=== PATIENT | female | born 1995 | race Caucasian/White ===

== ENCOUNTER 2019-01-27 00:44 | Emergency (ER) | payer OTHER ==
[2019-01-27] MEDS ORDERED: methylPREDNISolone NA SUCC 125 MG/2 ML VIAL ONE (00:50)
[2019-01-27] MEDS ORDERED: methylPREDNISolone NA SUCC 125 MG/2 ML VIAL IVPUSH ONE (00:56)
[2019-01-27 00:59] VITALS: BMI 32.3
--- NOTE | 2019-01-27 01:03 | PDOC ---
History of Present Illness - General Chief Complaint: Allergic Reaction Stated Complaint: ALLERGIC REACTION Time Seen by Provider: 01/27/19 00:55 - History of Present Illness Initial Comments: 01/27/19 00:56 This otherwise healthy 23-year-old woman presents with few hour history of urticaria. Patient ate dinner containing shrimp at approximately 11 PM tonight. Within approximately an hour, she began to develop pruritic rash of her face/neck/back/abdomen and extremities. She has mild throat itching but no sensation of difficulty swallowing/breathing. Patient states that she is previously eaten shellfish in the past without allergic reaction. No other new food or medication exposure. Patient denies new vitamin/supplement or exposure to any new topical agent. Other than recent (last few days) upper respiratory symptoms of nasal congestion /runny nose, the patient is otherwise in her usual good health. On no daily medications No known allergies Non-smoker; no daily alcohol/other recreational drug use Past History - Past Medical History Allergies/Adverse Reactions: Allergies Allergy/AdvReac Type Severity Reaction Status Date / Time shellfish derived Allergy Verified 01/27/19 00:46 Home Medications: Ambulatory Orders Methylprednisolone [Medrol Dose Isiah] 4 mg PO ASDIR #21 tablet 01/27/19 Review of Systems - Review of Systems Able to Perform ROS?: Yes Comments:: 12 point review of systems is negative except for what is noted in the history of present illness *Physical Exam - Physical Exam Comments: GENERAL: Adult female, alert and oriented x3, no acute distress HEAD: Normal with no signs of trauma. EYES: PERRLA, EOMI, sclera anicteric, conjunctiva clear. ENT: Ears normal, nares patent, oropharynx clear without exudates. Moist mucous membranes. No lip/tongue/uvular edema NECK: Normal range of motion, supple without lymphadenopathy, JVD, or masses. No stridor. LUNGS: Breath sounds equal, clear to auscultation bilaterally. No wheezes HEART:Regular rate and rhythm, normal S1 and S2 without murmur, rub or gallop. ABDOMEN:.normal bowel sounds No guarding,tenderness or rebound.No masses No distention. EXTREMITIES: Normal range of motion, no edema. No clubbing or cyanosis. No erythema, or tenderness. NEUROLOGICAL: Cranial nerves II through XII grossly intact. Normal speech. No focal neurological deficits. MUSCULOSKELETAL: Back non-tender to palpation, no CVA tenderness SKIN: Maculopapular rash consistent with urticaria involving face, neck, back, chest, abdomen and extremities Medical Decision Making - Medical Decision Making 01/27/19 03:14 Clinical presentation and this otherwise healthy 23-year-old woman consistent with general allergic reaction, likely secondary to shellfish (shrimp). For the patient did not have upper airway edema on exam, she had significant urticaria of the face. Therefore, IV access was obtained and patient given 125 mg of Solu-Medrol IV as well as 50 mg Benadryl IV. After 3-hour observation, urticaria resolved and no further lip/tongue/uvular edema present. Patient is comfortable without any further pruritus or development of swallowing/breathing difficulties. Patient discharged in the company of her friends with instructions to continue antihistamines (nonsedating antihistamine during the day/Benadryl at night or when somnolence can be tolerated) as needed for pruritus. Medrol Dosepak prescription was sent to her pharmacy. She should begin taper tomorrow. Patient does not currently have a PMD; she was given Dr. Joiner's referral information for follow-up appointment within 48 hours (patient may also use a general medical doctor in her insurance plan). She should return to the emergency room immediately if she has recurrence of severe urticaria or develops any difficulty swallowing/breathing. She should avoid all shellfish until allergic testing can be performed. Discharge - Discharge Information Problems reviewed: Yes Clinical Impression/Diagnosis: Allergic reaction Qualifiers: Encounter type: initial encounter Qualified Code(s): T78.40XA - Allergy, unspecified, initial encounter Condition: Stable Disposition: HOME - Additional Discharge Information Prescriptions: Methylprednisolone [Medrol Dose Isiah] 4 mg PO ASDIR #21 tablet - Follow up/Referral Referrals: Juan Antonio Joiner MD [Staff Physician] - 2 Days - Patient Discharge Instructions Patient Printed Discharge Instructions: DI for General Allergic Reactions Additional Instructions: Antihistamine (Benadryl for nighttime use; Claritin/Zyrtec as needed for daytime use) as needed for itching Medrol Dosepak: Taper as directed starting tomorrow No school tomorrow Call doctor's office in the AM and arrange for follow-up within the next 48 hours (Dr. Joiner or other doctor in your insurance plan) Avoid shellfish until allergic testing completed Return to ER immediately if you have any worsening swelling/severe itching or if you experience any difficulty swallowing/breathing - Post Discharge Activity Work/Back to School Note: Back to School
[2019-01-27 02:44] VITALS: BP 106/63; PULSE 85
== END 2019-01-27 02:54 | disposition home or self-care (01) ==
LOC: FER 00:44
PROC: 3E033GC Introduction of Other Therapeutic Substance into Peripheral Vein, Percutaneous Approach (ICD-10-PCS; principal; 2019-01-27)
DX: T78.40XA Allergy, unspecified, initial encounter (principal); Z91.013 Allergy to seafood
CPT/HCPCS: 96374; 99282-25